=== PATIENT | female | born 1985 | race African-American/Black ===

== ENCOUNTER 2020-06-22 18:13 | Inpatient (IN) | payer OTHER, SELFPAY ==
[2020-06-22] VITALS (40 sets, daily range): BP systolic 118–154; BP diastolic 64–136; PULSE 90–191; TEMP 36.3; O2SAT 99–100; BMI 28.2
--- NOTE | 2020-06-22 19:45 | LDADM ---
This patient, Alisa Willingham, was admitted to Labor/Delivery/Recovery 105 on 06/22/20 at 18:13. Plans for labor, pain management and were discussed with patient. Patient/family oriented to hospital policies and general routines including ID bracelet, bed and alarms, visiting hours, pain management, procedures, bathroom and other care routines, personal items, smoking policy, room service/diet and guest tray routines, infant security routines, and visiting hours. Patient/Family are encouraged to report perceived risks to care and to ask questions if they do not understand what they are told or what they should do. See OBIX for further documentation.
--- NOTE | 2020-06-22 19:54 | WPDANESEPPF ---
Anes - Initial Pre Proc Eval Procedure: labor epidural Date/Time: 06/22/20 19:54 Surgeon: Rosanne Pre Op Diagnosis: labor pain Pre Op Diagnosis: Labor Patient Data Age: 34 Gender: F Height: 1.65 m Weight: 77 kg Last Vital Signs Pulse 101 H 06/22/20 19:46 BP 145/94 H 06/22/20 19:46 Allergies Allergy/AdvReac Type Severity Reaction Status Date / Time No Known Allergies Allergy Mild Verified 06/07/20 13:36 Home Medications Medication Instructions Recorded Confirmed Type PNV cmb#95-ferrous fumarate-FA 1 tablet PO DAILY 06/07/20 06/07/20 History [] ergocalciferol (vitamin D2) 1,250 mcg PO WEEKLY 06/07/20 06/07/20 History [Vitamin D2] Patient hx anesthesia problems: none Family hx anesthesia problems: none PMFSH Family History Family History (Updated 06/07/20 @ 13:38 by Bonita Chambers RN) Mother Goiter Social History Social History Substance use: never Spiritual care concerns: No Anes - Eval Final PreProcedure Day of Procedure 06/22/20 19:54 Patient weight: overweight ASA classification: II Emergent: no Anesthesia type and monitoring: regional epidural Informed Consent: The patient's anesthetic plan and its attendant risks and benefits were discussed with the patient/family/POA. Questions were solicited and answers provided to the satisfaction of the patient/family/POA.
[2020-06-22] MEDS: LACTATED RINGERS 1,000 ML 125 ML IV CONT ×2 (19:59→20:29)
[2020-06-22 20:04] LABS: Basophils Percent Auto 0.1 % (0.2-1.2); Eosinophils Percent Auto 0.3 % (0-4.4); Hematocrit 39.4 % (37.0-47.0); Hemoglobin 12.9 g/dL (12.0-15.0); Immature Granulocyte Absolute 0.06 K/mm3 (0.00-0.031); Immature Granulocyte Percent A 0.5 % (0-0.5); Lymphocytes Absolute Auto 1.34 K/mm3 (0.9-3.2); Lymphocytes Percent Auto 10.9 % (18.3-44.2); Mean Corpuscular HGB Conc 32.7 g/dl (32-36); Mean Corpuscular Hemoglobin 27.4 pg (26-34); Mean Corpuscular Volume 83.8 fl (80-100); Mean Platelet Volume 12.7 fl (7.4-10.4); Monocytes Percent Auto 7.8 % (2.6-8.5); Neutrophils Absolute Auto 9.9 K/mm3 (1.3-6.7); Neutrophils Percent Auto 80.4 % (45.5-73.1); Platelet Count Result 128 k/mm3 (150-375); Red Cell Distribution Width 14.5 % (11.5-14.5); White Blood Count 12.3 K/mm3 (4.5-10.0)
--- NOTE | 2020-06-22 22:24 | WPDOBADMIT ---
Obstetrics - Admit Note Admission Note: record reviewed. No pertinent additions to the history and/or any subsequent changes in the physical findings that are not consistent with the expected course of the were found. Additions to the history and/or subsequent changes in the physical findings follow. None. Here in labor.
--- NOTE | 2020-06-22 22:24 | PM.OBPRVD ---
OB - Delivery Note Procedure Delivery date: 06/22/20 Intrapartal events: None Delivery monitor: external FHT and external uterine Route of delivery: Laceration description: Periurethral - 2nd Degree (left) Delivery repair: vicryl (3-0) Specimen: No Estimated blood loss (mL): 100 Anesthesia type: Epidural Disposition: floor [place] Baby Weeks of gestation at delivery: 38 Infant gender: Male Weight (pounds): 5 Weight (ounces): 13 presentation: vertex Placenta delivery description: Spontaneous cord vessel description: 3 Vessels and Nuchal Cord score one minute: 9 score five minutes: 9
--- NOTE | 2020-06-22 22:26 | P.DS_ITS ---
DS: Admitting Diagnosis Admitting Diagnosis Admitting Diagnosis: Labor DS: Discharge Diagnosis Discharge Diagnosis (1) (normal spontaneous vaginal delivery): Code(s): O80 - Encounter for full-term uncomplicated delivery Status: Acute OB - DS: Summary OB Procedures : Ultrasound OB Procedures Intrapartum: Spontaneous Vag Delivery OB Procedures: : None Peripartum Data Infant Delivery Method: Natural Vaginal Laceration description: Periurethral - 2nd Degree complications: none Status at Discharge Functional status at discharge: independent ambulation Overall status at discharge: patient is progressing back to baseline Time Spent with Patient Time attestation: Total time spent providing and/or coordinating discharge services: DS: Data Data Completed and Pending Labs on day of discharge: Labs from last 24 hours 06/22/20 06/22/20 06/22/20 19:52 19:52 19:52 WBC 12.3 H RBC 4.70 Hgb 12.9 Hct 39.4 MCV 83.8 MCH 27.4 MCHC 32.7 RDW 14.5 Plt Count 128 L MPV 12.7 H Immature Gran % (Auto) 0.5 Neut % (Auto) 80.4 H Lymph % (Auto) 10.9 L [place] % (Auto) 7.8 Eos % (Auto) 0.3 Baso % (Auto) 0.1 L Lymph # (Auto) 1.34 [place] # (Auto) 1.0 H Eos # (Auto) 0.0 Baso # (Auto) 0.0 Abs Immat Gran (auto) 0.06 H Absolute Neuts (auto) 9.9 H Absolute Nucleated RBC 0.0 Nucleated RBC % 0.0 RPR Pending Blood Type B Positive Antibody Screen Negative Discharge Plan Discharge Attending physician on discharge: Alma Lay Consulting providers: Prosper Jones Discharging Clinician: Alma Lay Anticipated Discharge Date/Time: 06/22/20 22:27 Patient Disposition: Home, Self-Care Activity: may shower and pelvic rest Diet: regular Patient Instructions: Antibiotic Form Stand Alone Forms: General Discharge Information Follow-up/Referrals: Alma Lay MD [Physician] - 6 Weeks Discharge Medications: No Action ergocalciferol (vitamin D2) [Vitamin D2] 1,250 mcg (50,000 unit) Capsule 1,250 mcg PO WEEKLY RF: 0 PNV cmb#95-ferrous fumarate-FA [] 28 mg iron- 800 mcg Tablet 1 tablet PO DAILY RF: 0 Date of admission: 06/22/20 18:13 Primary Care Provider: PHYSICIAN,[employer] Admitting Provider: Chavez Craft Attending physician on admission: Chavez Craft Condition: Stable Care Plan Goals: Plans condoms for control
[2020-06-22] MEDS: OXYTOCIN 30 UNITS/NS 500 ML 30 UNITS/500 ML BAG 125 UNITS IV CONT (23:26)
[2020-06-23 00:01] VITALS: BP 119/87; PULSE 107
[2020-06-23] MEDS: BENZOCAINE 20% AER SPR (*SP) 56 GM CAN 1 SPRAY TOPICAL (00:15)
[2020-06-23] MEDS: WITCH HAZEL 40 PADS 1 PAD TOPICAL (00:15)
[2020-06-23 00:16] VITALS: BP 126/73; PULSE 103
[2020-06-23 00:37] LABS: Potassium 4.1 mmol/L (3.4-5.0)
--- NOTE | 2020-06-23 00:39 | PC.NURSE ---
Patient transferred to post room #280 via wheel chair. Support person present. Oriented to unit, room, information board, rooming in, admission packet and security measures. Patient verbalizes understanding.
[2020-06-23 00:41] LABS: Alanine Aminotransferase 11 U/L (4-35); Albumin Level 3.6 g/dL (3.5-5.1); Alkaline Phosphatase 159 U/L (38-126); Anion Gap 7 mmol/L (8-16); Aspartate Amino Transferase 20 U/L (14-36); Bilirubin,Total 0.4 mg/dL (0.2-1.3); Blood Urea Nitrogen 7 mg/dL (7-17); Calcium 9.3 mg/dL (8.4-10.2); Carbon Dioxide 21 mmol/L (22-30); Chloride 106 mmol/L (98-107); Estimated CRCL calculation 99 ml/min; Estimated Glomerular Filt Rate > 60; Glucose 55 mg/dL (65-105); Sodium 134 mmol/L (137-145)
[2020-06-23 01:00] VITALS: BP 116/70; PULSE 95; RESP 18; TEMP 37.2; O2SAT 100
[2020-06-23 01:40] LABS: Uric Acid 5.7 mg/dL (2.5-7.5)
[2020-06-23] MEDS: IBUPROFEN 600 MG TABLET PO ×3 (02:59→19:47)
[2020-06-23 06:11] LABS: Hematocrit 36.5 % (37.0-47.0); Hemoglobin 12.2 g/dL (12.0-15.0); Mean Platelet Volume 12.2 fl (7.4-10.4); Platelet Count Result 128 k/mm3 (150-375)
[2020-06-23 08:30] VITALS: BP 120/67; PULSE 93; RESP 20; TEMP 36.4
[2020-06-23] MEDS: DOCUSATE SODIUM 100 MG CAPSULE PO (08:32)
[2020-06-23] MEDS: MULTIVIT/MIN/PREN/FOL AC/IRON TABLET 1 TAB PO (08:32)
--- NOTE | 2020-06-23 14:51 | WPDANLDPN2 ---
Anes-Prog Note L&D Date/Time: 06/23/20 14:51 Comfortable throughout: labor and delivery Neuraxial method: epidural Epidural/Spinal procedure site: clean & non-tender Neuro status: Neuro function grossly intact. Cardiovascular status: normal Respiratory status: normal Airway patency: baseline Mental status: baseline Post-Op hydration status: normal Vital Signs: Last Vital Signs Temp 36.4 C L 06/23/20 08:30 Pulse 93 06/23/20 08:30 Resp 20 06/23/20 08:30 BP 120/67 06/23/20 08:30 Pulse Ox 100 06/23/20 01:00 I/O: Intake & Output 06/22/20 06/23/20 06/23/20 23:59 07:59 15:59 Intake Total 1000 Balance 1000 Post-procedural complaints: none Patient feedback: Patient satisfied with anesthetic care.
[2020-06-23 19:50] VITALS: BP 122/71; PULSE 90; RESP 16; TEMP 36.9; O2SAT 100
--- NOTE | 2020-06-23 19:50 | PC.NURSE ---
Patient to view the discharge video Mother & Baby Care, The First Two Weeks . Patient was given the opportunity and encouraged to ask questions. Patient verbalized understanding of information shared and has been given the mother/baby guide for home reference.
--- NOTE | 2020-06-24 05:16 | PM.OBPNVD ---
OB - PN: Subj Subjective Date/time seen: 06/24/20 05:16 Patient comments: no complaints and pain well controlled baby status: doing well and nursing well OB - PN: Obj Data Labs CBC & Chem 7: 06/23/20 05:34 06/23/20 00:18 Labs: Laboratory Results - last 24 hr 06/23/20 05:34 Hgb 12.2 Hct 36.5 L Plt Count 128 L MPV 12.2 H OB - PN A/P Plan day: 2 Plan: routine care, discharge home and follow up 6 weeks Comments: Plans condoms for bc Time Spent With Patient Time: Total time spent is greater than 50% in coordination of care (as documented) at patient's floor/unit and/or counseling patient: Exam : Bimanual exam- vagina & uterus: other (Uterus firm, nt @U)
[2020-06-24 07:55] VITALS: BP 118/73; PULSE 83; RESP 18; TEMP 36.6
[2020-06-24] MEDS: DOCUSATE SODIUM 100 MG CAPSULE PO (07:57)
[2020-06-24] MEDS: MULTIVIT/MIN/PREN/FOL AC/IRON TABLET 1 TAB PO (07:57)
[2020-06-24] MEDS: IBUPROFEN 600 MG TABLET PO (07:57)
--- NOTE | 2020-06-24 10:52 | WPDANLDPN2 ---
Anes-Prog Note L&D Date/Time: 06/24/20 10:52 Comfortable throughout: labor and delivery Neuraxial method: epidural Epidural/Spinal procedure site: clean & non-tender Neuro status: Neuro function grossly intact. Cardiovascular status: normal Respiratory status: normal Airway patency: baseline Mental status: baseline Post-Op hydration status: normal Vital Signs: Last Vital Signs Temp 36.6 C 06/24/20 07:55 Pulse 83 06/24/20 07:55 Resp 18 06/24/20 07:55 BP 118/73 06/24/20 07:55 Pulse Ox 100 06/23/20 19:50 Post-procedural complaints: none Patient feedback: Patient satisfied with anesthetic care.
[2020-06-25 08:48] VITALS: BP 123/78; PULSE 88; RESP 16; TEMP 36.8; O2SAT 100
[2020-06-25 08:57] LABS: Rapid Plasma Reagin Non-Reactive (NonReactive)
== END 2020-06-24 11:20 | disposition home or self-care (01) | DRG 560 ==
LOC: ANHLDR 06-26 19:26 → ANHOB2 06-26 19:26
PROVIDERS: Admitting Provider Obstetrics & Gynecology Gynecology; Visit Provider Obstetrics & Gynecology Gynecology
DX: O69.81X0 Labor and delivery complicated by cord around neck, without compression, not applicable or unspecified (principal); O71.82 Other specified trauma to perineum and vulva; Z3A.38 38 weeks gestation of pregnancy; Z37.0 Single live birth
CPT/HCPCS: 36415; 80053; 84550; 85014; 85018; 85025; 85049; 86592; 86850; 86900; 86901; A9270; J2590; J2795; J7120

== ENCOUNTER 2022-06-13 08:46 | Emergency (ER) | payer OTHER, SELFPAY ==
--- NOTE | ~2022-06-13 | XR_ITS ---
EXAMINATION: XR chest 2V DATE: 06/13/2022 09:15 INDICATION: Cough. TECHNIQUE: Frontal and lateral views of the chest were obtained. COMPARISON: None. FINDINGS: The chest demonstrates clear lungs without pneumonia, pleural effusion, or pneumothorax. Th e heart size is normal. IMPRESSION: 1. No acute cardiopulmonary disease. Reviewed, dictated and finalized at location A.
[2022-06-13 09:02] VITALS: BP 121/93; PULSE 97; RESP 16; TEMP 36.4; O2SAT 100
--- NOTE | 2022-06-13 09:03 | ED.URI ---
HPI - URI/Sore Throat General Chief Complaint: Upper Respiratory Infection Stated Complaint: flu s/sx Time Seen by Provider: 06/13/22 08:53 History of Present Illness HPI Narrative: Patient is a 36-year-old female here for evaluation of intermittent episodes of upper respiratory type infection symptoms for the past month. Patient states that on May 03, she had bilateral ear pain, sore throat, rhinorrhea and cough. She was treated for an ear infection with amoxicillin with resolution of her symptoms. She states that yesterday, her symptoms came back, with bilateral ear pain, congestion, chills and a nonproductive cough. She does have a son that attends daycare, he is having similar symptoms. She has not attempted any ctov-ijr-zlsnied medication for symptoms. She denies any chest pain, shortness of breath, leg swelling, nausea, vomiting. Related Data Home Medications Medication Instructions Recorded Confirmed ergocalciferol (vitamin D2) 1,250 1,250 mcg PO WEEKLY 06/07/20 06/07/20 mcg (50,000 unit) capsule (Vitamin D2) vit no.95-ferrous 1 tablet PO DAILY 06/07/20 06/07/20 fumarate 28 mg-folic acid 800 mcg tablet () Allergies Allergy/AdvReac Type Severity Reaction Status Date / Time No Known Allergies Allergy Mild Verified 06/07/20 13:36 Review of Systems Review of Systems: Gen.: Reports chills. Eyes: Denies eye pain or visual change ENT: Reports congestion, ear pain Respiratory: Reports cough. Denies shortness of breath CV: Denies chest pain or palpitations GI: Denies abdominal pain nausea, emesis or diarrhea denies burning, urgency, frequency or hematuria Musculoskeletal: Denies back pain or muscle pain Neuro: Denies numbness, tingling, weakness or focal weakness Skin: Denies rash Except as documented, all other systems reviewed and negative PMFSH Family History Family History (Updated 06/07/20 @ 13:38 by Bonita Chambers RN) Mother Goiter Social History Social History Substance use: never Spiritual care concerns: No Exam Narrative: APPEARANCE: Well appearing, no pain in distress, well-nourished. Head: Normocephalic and atraumatic. EYES: PERRLA/EOMI, conjunctivae clear NOSE: No nasal drainage EARS: Bilateral TMs bulging. No mastoid tenderness. THROAT: Oropharynx is clear. Mucous membranes are moist. NECK: Supple. No adenopathy, no masses. RESPIRATORY: Coughing throughout exam. Airway patent, respirations nonlabored. Clear to auscultation bilaterally, no rales, rhonchi, wheezing. CARDIOVASCULAR: Regular rate and rhythm without murmurs, rubs, or gallops. ABDOMINAL: Normoactive bowel sounds. Soft, nontender, nondistended. No rebound tenderness or guarding. MUSCULOSKELETAL: Extremities are warm and well-perfused. Moves all extremities well. No edema. NEURO: Normal speech. No focal neurologic deficits. SKIN: Skin is warm and dry. No rashes. PSYCHIATRIC: Normal affect/mood.. Course Vital Signs Vital signs: Vital Signs Temperature 97.6 F 06/13/22 09:02 Pulse Rate 97 06/13/22 09:02 Respiratory Rate 16 06/13/22 09:02 Blood Pressure 121/93 H 06/13/22 09:02 Pulse Oximetry 100 06/13/22 09:02 Oxygen Delivery Room Air 06/13/22 09:02 Temperature 97.6 F 06/13/22 09:02 Pulse Rate 88 06/13/22 11:29 Respiratory Rate 16 06/13/22 11:29 Blood Pressure 148/77 H 06/13/22 11:29 Pulse Oximetry 100 06/13/22 11:29 Oxygen Delivery Room Air 06/13/22 09:02 MDM - URI/Sore Throat MDM Narrative Medical decision making narrative: 36-year-old female here for evaluation of upper respiratory infectious type symptoms over the past 3 weeks or so that have been intermittent in nature. Here she is nontoxic-appearing, her bilateral TMs are bulging and appear infected, will treat for otitis media. Chest x-ray was obtained given longevity of cough which was with no acute disease. COVID and flu negative. Likely otitis media, will treat with oral a
[2022-06-13 11:10] LABS: Influenza A QL RT-PCR Negative (Negative); Influenza B QL RT-PCR Negative (Negative); SARS-CoV-2 RNA PCR Negative
[2022-06-13 11:29] VITALS: BP 148/77; PULSE 88; RESP 16; O2SAT 100
== END 2022-06-13 11:31 | disposition home or self-care (01) ==
PROVIDERS: Physician Assistant; Emergency Provider Emergency Medicine
DX: H66.93 Otitis media, unspecified, bilateral (principal); Z20.822 Contact with and (suspected) exposure to COVID-19
CPT/HCPCS: 71046; 87502; 99283; C9803; U0003; U0005